=== PATIENT | female | born 1995 | race Caucasian/White ===

== ENCOUNTER 2018-03-16 12:09 | Emergency (ER) | payer OTHER ==
[2018-03-16 12:25] VITALS: BP 114/70; PULSE 69; RESP 18; TEMP 98.4
[2018-03-16] MEDS ORDERED: SODIUM CHLORIDE 0.9% 1,000 ML IV ONE (13:11)
--- NOTE | 2018-03-16 13:56 | ED ---
Abdominal Pain HPI - General Chief Complaint: Abdominal Pain Stated Complaint: 18wks preg, cramping Time Seen by Provider: 03/16/18 12:39 Source: patient, RN notes reviewed, old records reviewed Mode of arrival: ambulatory Limitations: no limitations - History of Present Illness Initial Comments: Patient is a 22 year old female, currently 18 weeks . She presents for abdominal pain, cramping and history of hematuria. She has been treated for cystitis by OBGYN with keflex, and has been taking keflex for the past 3 days. She states she continued to have intermittent hematuria. She adamently denies vaginal bleeding, or discharge. She denies back pain. - Related Data Home Medications Medication Instructions Recorded Confirmed Cephalexin [Keflex] 500 mg PO Q8H 03/16/18 03/16/18 Sertraline [Zoloft] 50 mg PO DAILY 03/16/18 03/16/18 Allergies Allergy/AdvReac Type Severity Reaction Status Date / Time No Known Allergies Allergy Verified 03/16/18 12:44 Review of Systems ROS Statement: Those systems with pertinent positive or pertinent negative responses have been documented in the HPI. ROS Other: All systems not noted in ROS Statement are negative. Past Medical History Past Medical History: No Reported History History of Any Multi-Drug Resistant Organisms: None Reported Additional Past Surgical History / Comment(s): heart murmur Past Psychological History: Anxiety Smoking Status: Former smoker Past Alcohol Use History: None Reported Past Drug Use History: None Reported General Exam - General Exam Comments Initial Comments: 22 year old female, no distress. Limitations: no limitations General appearance: alert, in no apparent distress Head exam: Present: atraumatic, normocephalic, normal inspection Eye exam: Present: normal appearance, PERRL, EOMI. Absent: scleral icterus, conjunctival injection, periorbital swelling ENT exam: Present: normal exam, mucous membranes moist Neck exam: Present: normal inspection. Absent: tenderness, meningismus, lymphadenopathy Respiratory exam: Present: normal lung sounds bilaterally. Absent: respiratory distress, wheezes, rales, rhonchi, stridor Cardiovascular Exam: Present: regular rate, normal rhythm, normal heart sounds. Absent: systolic murmur, diastolic murmur, rubs, gallop, clicks GI/Abdominal exam: Present: soft, normal bowel sounds. Absent: distended, tenderness, guarding, rebound, rigid External exam: Present: other (Patient refused pelvic exam) Extremities exam: Present: normal inspection, full ROM, normal capillary refill. Absent: tenderness, pedal edema, joint swelling, calf tenderness Back exam: Present: normal inspection Neurological exam: Present: alert, oriented X3, CN II-XII intact Psychiatric exam: Present: normal affect, normal mood Skin exam: Present: warm, dry, intact, normal color. Absent: rash Course Vital Signs 03/16/18 12:22 Temperature 98.4 F Pulse Rate 69 Respiratory 18 Rate Blood Pressure 114/70 O2 Sat by Pulse 100 Oximetry Medical Decision Making - Medical Decision Making Patient is a 22 year old female 18 weeks with intermittient hematuria, despite treatment for 3 days with keflex for cystitis. She has clear UA at this time, US shows viable IUP. Blood work was reviewed to be normal. She refused pelvic exam and is adament she has no vaginal bleeding. Disucssed likely resolving hemorrhagic cystitis. Discussed OB follow up, she has appt next week. - Lab Data Result diagrams: 03/16/18 13:45 03/16/18 13:45 Lab Results 03/16/18 03/16/18 03/16/18 Range/Units 13:45 13:45 13:45 WBC 7.6 (3.8-10.6) k/uL RBC 3.66 L (3.80-5.40) m/uL Hgb 11.1 L (11.4-16.0) gm/dL Hct 33.4 L (34.0-46.0) % MCV 91.1 (80.0-100.0) fL MCH 30.2 (25.0-35.0) pg MCHC 33.1 (31.0-37.0) g/dL RDW 12.8 (11.5-15.5) % Plt Count 138 L (150-450) k/uL Neutrophils % 79 % Lymphocytes % 13 % Monocytes % 5 % Eosinophils % 1 % Basophils % 0 % Neutrophils # 5.9 (1.3-7.7) k/uL Lymphocytes # 1.0 (1.0-4.8) k/uL Monocytes # 0.4 (0-1.0) k/uL Eosinophils # 0.1 (0-0.7) k/uL Basophils # 0.0 (0-0.2) k/uL PT (9.0-12.0) sec INR (<1.2) APTT (22.0-30.0) sec Sodium 136 L (137-145) mmol/L Potassium 3.8 (3.5-5.1) mmol/L Chloride 108 H (98-107) mmol/L Carbon Dioxide 24 (22-30) mmol/L Anion Gap 4 mmol/L BUN 8 (7-17) mg/dL Creatinine 0.50 L (0.52-1.04) mg/dL Est GFR (CKD-EPI)AfAm >90 (>60 ml/min/1.73 sqM) Est GFR (CKD-EPI)NonAf >90 (>60 ml/min/1.73 sqM) Glucose 107 H (74-99) mg/dL Calcium 8.6 (8.4-10.2) mg/dL Total Bilirubin 0.2 (0.2-1.3) mg/dL AST 12 L (14-36) U/L ALT 17 (9-52) U/L Alkaline Phosphatase 36 L (38-126) U/L Total Protein 5.6 L (6.3-8.2) g/dL Albumin 3.3 L (3.5-5.0) g/dL Urine Color Urine Appearance (Clear) Urine pH (5.0-8.0) Ur Specific Snyder (1.001-1.035) Urine Protein (Negative) Urine Glucose (UA) (Negative) Urine Ketones (Negative) Urine Blood (Negative) Urine Nitrite (Negative) Urine Bilirubin (Negative) Urine Urobilinogen (<2.0) mg/dL Ur Leukocyte Esterase (Negative) Urine HCG, Qual (Not Detectd) Blood Type A Positive Blood Type Recheck No 03/16/18 03/16/18 03/16/18 Range/Units 13:45 13:45 13:45 WBC (3.8-10.6) k/uL RBC (3.80-5.40) m/uL Hgb (11.4-16.0) gm/dL Hct (34.0-46.0) % MCV (80.0-100.0) fL MCH (25.0-35.0) pg MCHC (31.0-37.0) g/dL RDW (11.5-15.5) % Plt Count (150-450) k/uL Neutrophils % % Lymphocytes % % Monocytes % % Eosinophils % % Basophils % % Neutrophils # (1.3-7.7) k/uL Lymphocytes # (1.0-4.8) k/uL Monocytes # (0-1.0) k/uL Eosinophils # (0-0.7) k/uL Basophils # (0-0.2) k/uL PT 10.0 (9.0-12.0) sec INR 0.9 (<1.2) APTT 26.4 (22.0-30.0) sec Sodium (137-145) mmol/L Potassium (3.5-5.1) mmol/L Chloride (98-107) mmol/L Carbon Dioxide (22-30) mmol/L Anion Gap mmol/L BUN (7-17) mg/dL Creatinine (0.52-1.04) mg/dL Est GFR (CKD-EPI)AfAm (>60 ml/min/1.73 sqM) Est GFR (CKD-EPI)NonAf (>60 ml/min/1.73 sqM) Glucose (74-99) mg/dL Calcium (8.4-10.2) mg/dL Total Bilirubin (0.2-1.3) mg/dL AST (14-36) U/L ALT (9-52) U/L Alkaline Phosphatase (38-126) U/L Total Protein (6.3-8.2) g/dL Albumin (3.5-5.0) g/dL Urine Color Colorless Urine Appearance Clear (Clear) Urine pH 6.5 (5.0-8.0) Ur Specific Snyder 1.003 (1.001-1.035) Urine Protein Negative (Negative) Urine Glucose (UA) Negative (Negative) Urine Ketones Negative (Negative) Urine Blood Negative (Negative) Urine Nitrite Negative (Negative) Urine Bilirubin Negative (Negative) Urine Urobilinogen <2.0 (<2.0) mg/dL Ur Leukocyte Esterase Negative (Negative) Urine HCG, Qual Detected (Not Detectd) Blood Type Blood Type Recheck - Radiology Data Radiology results: report reviewed Viable IUP in breech position.Measuring 18 weeks and 1 day. Disposition Clinical Impression: 18 weeks gestation of , History of hematuria Disposition: HOME SELF-CARE Condition: Good Instructions (If sedation given, give patient instructions): (ED) Additional Instructions: Patient advised to have some close follow-up with your [facility]. Finish the antibiotics as previously prescribed. There is any further vaginal bleeding / bloody urine or discharge please return for reevaluation. Is patient prescribed a controlled substance at d/c from ED?: No Referrals: Dominick Mackey MD [Primary Care Provider] - 1-2 days Time of Disposition: 15:37
[2018-03-16 14:11] LABS: Basophils % (A) 0 %; Eosinophils # (A) 0.1 k/uL (0-0.7); Eosinophils % (A) 1 %; HCT 33.4 % (34.0-46.0); HGB 11.1 gm/dL (11.4-16.0); Lymphocytes % (A) 13 %; MCH 30.2 pg (25.0-35.0); MCHC 33.1 g/dL (31.0-37.0); MCV 91.1 fL (80.0-100.0); Mean Platelet Volume 8.1; Monocytes # (A) 0.4 k/uL (0-1.0); Monocytes % (A) 5 %; Neutrophils # (A) 5.9 k/uL (1.3-7.7); Neutrophils % (A) 79 %; Platelet Count 138 k/uL (150-450); RBC 3.66 m/uL (3.80-5.40); RDW 12.8 % (11.5-15.5); WBC 7.6 k/uL (3.8-10.6)
[2018-03-16 14:19] LABS: INR 0.9 (<1.2); Partial Thromboplastin Time 26.4 sec (22.0-30.0)
[2018-03-16 14:22] LABS: ALT 17 U/L (9-52); AST 12 U/L (14-36); Albumin 3.3 g/dL (3.5-5.0); Alkaline Phosphatase 36 U/L (38-126); Anion Gap 4 mmol/L; Blood Urea Nitrogen 8 mg/dL (7-17); Calcium 8.6 mg/dL (8.4-10.2); Carbon Dioxide 24 mmol/L (22-30); Chloride 108 mmol/L (98-107); Glucose 107 mg/dL (74-99); Potassium 3.8 mmol/L (3.5-5.1); Sodium 136 mmol/L (137-145); Total Bilirubin 0.2 mg/dL (0.2-1.3); Total Protein 5.6 g/dL (6.3-8.2)
[2018-03-16 14:37] LABS: Appearance,Urine Clear (Clear); Bilirubin,Urine Negative (Negative); Blood,Urine Negative (Negative); Color,Urine Colorless; Glucose,Urine (UA) Negative (Negative); Ketones,Urine Negative (Negative); Leukocyte Esterase,Urine Negative (Negative); Nitrite,Urine Negative (Negative); PH, Urine 6.5 (5.0-8.0); Protein,Urine Negative (Negative); Specific Gravity,Urine 1.003 (1.001-1.035); Urobilinogen,Urine <2.0 mg/dL (<2.0)
--- NOTE | 2018-03-16 15:18 | US ---
EXAMINATION TYPE: US OB >= 14 wk fetus DATE OF EXAM: 03/16/2018 COMPARISON: None CLINICAL HISTORY: painHematuria, cramping, 3, para 1, miscarriage 1 TECHNIQUE: Transabdominal (TA) GESTATIONAL AGE / DATING Physician Established: (18 weeks/0 days) EDC: 08/17/2018 Dates by LMP: Unknown Dates by First Scan: This is 1st scan Dates by Current Scan: (18 weeks/1 days) EDC: 08/16/2018 SURVEY IUP: Single PLACENTA: Fundal: 2 hypoechoic areas within placenta with largest measuring 2.0cm may represent plac ental [place] PREVIA: No Previa ELIF: 10.0 cm Normal CERVICAL LENGTH (transabdominal: norm > 3.0cm): 3.6 cm BIOMETRY PRESENTATION: Breech LIE: Longitudinal BPD: 4.0 cm 18 weeks / 1 days HC: 14.9 cm 18 weeks / 0 days AC: 12.8 cm 18 weeks / 2 days FL: 2.7 cm 18 weeks / 2 days ESTIMATED WEIGHT IN GRAMS: 231.3 grams ESTIMATED WEIGHT IN LBS/OZ: 0 lbs. 8 oz. WEIGHT PERCENTAGE BASED ON ESTABLISHED DATES: 62% HC/AC: 1.17 Normal FL/AC: 21.14 HEART RATE: 152 bpm RHYTHM: Normal Viable single IUP measuring 18 weeks 1 day with heart rate of 152bpm and an estimated delivery date o f 08/16/2018. IMPRESSION: Single viable intrauterine corresponding to ultrasound age 18 weeks 1 day with estimated da te of delivery 08/16/2018. Limited survey. Additional findings above.
== END 2018-03-16 16:07 | disposition home or self-care (01) ==
LOC: EC 12:09
DX: Z34.92 Encounter for supervision of normal pregnancy, unspecified, second trimester (principal); Z3A.18 18 weeks gestation of pregnancy; Z79.899 Other long term (current) drug therapy; Z87.891 Personal history of nicotine dependence; Z87.448 Personal history of other diseases of urinary system
CPT/HCPCS: 36415; 76805; 80053; 81003; 81025; 85025; 85610; 85730; 86900; 86901; 99284

== ENCOUNTER → 2018-05-26 | Outpatient (CLI) | payer OTHER ==
[2018-05-26 11:34] LABS: Glucose 3 Hour, Gest 67 mg/dL
== END | disposition home or self-care (01) ==
LOC: LABWHC1 07:31
PROVIDERS: ATTEND Obstetrics & Gynecology
DX: O99.810 Abnormal glucose complicating pregnancy (principal); Z3A.00 Weeks of gestation of pregnancy not specified
CPT/HCPCS: 36415; 82951; 82952

== ENCOUNTER 2018-08-17 21:10 | Outpatient (CLI) | payer OTHER ==
[2018-08-17 23:09] VITALS: BP 121/70; PULSE 87; RESP 16; TEMP 99.2
--- NOTE | 2018-08-19 08:13 | P.MSEPDOC ---
Presenting Problems - Arrival Data Date of Arrival on Unit: 08/17/18 Time of Arrival on Unit: 21:10 Mode of Transport: Wheelchair - Complaint OB-Reason for Admission/Chief Complaint: Possible Onset of Labor Comment: contractions since 1829 Medical History - Information : 3 Para: 1 Term: 1 : 0 Abortions: Spontaneous or Elective: 1 Number of Living Children: 1 - Gestational Age Gestational Age by PADMINI (wks/days): 40 Weeks and 0 Days Review of Systems - Review of Systems Constitutional: No problems Breast: No problems ENT: No problems Cardiovascular: No problems Respiratory: No problems Gastrointestinal: No problems Genitourinary: No problems Musculoskeletal: No problems Neurological: No problems Skin: No problems Vital Signs - Temperature Temperature: 99.2 F Temperature Source: Oral - Pulse Right Sitting Brachial Pulse Rate: 87 Pulse Assessment Method: Automatic Cuff - Respirations Respiratory Rate: 16 Oxygen Delivery Method: Room Air O2 Sat by Pulse Oximetry: 98 - Blood Pressure Right Arm Sitting Blood Pressure: 121/70 Blood Pressure Mean: 87 Blood Pressure Source: Automatic Cuff Medical Screen Scoring (Pre) - Cervical Exam Dilation: 1-3 cm = 1 Membranes: Intact - Uterine Contractions Frequency: > or = 36 weeks =2 Duration: > 40 seconds = 2 Intensity: N/A - Maternal Vital Signs Maternal Temperature: N/A Maternal Blood Pressure: N/A Signs of Preeclampsia: N/A Maternal Respirations: N/A - Assessment - Baby A Baseline FHR: 125 Heart Rate - NICHD Category: Category I (Normal) = 0 NST: Reactive - Total Score - Baby A Total Score - Baby A: 5 - Total Score - Baby B Total Score - Baby B: 5 - Total Score - Baby C Total Score - Baby C: 5 - Level of Risk - Baby A Level of Risk - Baby A: Low (0-5) - Level of Risk - Baby B Level of Risk - Baby B: Low (0-5) - Level of Risk - Baby C Level of Risk - Baby C: Low (0-5) Physician Notification (Pre) - Physician Notified Physician Notified Date: 08/17/18 Physician Notified Time: 22:00 Physician/Practitioner Notifed:: Jimbo Hannah Order Received: Yes Disposition - Disposition OB Disposition: Discharge to home, Written follow up instructions reviewed Discharge Date: 08/17/18 Discharge Time: 22:40 I agree with the RN Medical Screening Exam: Yes Risk & Benefit of care provided described in d/c instruction: Yes Diagnosis: FALSE LABOR AT OR AFTER 37 COMPLETED WEEKS OF GESTATION
== END 2018-08-17 22:40 | disposition home or self-care (01) ==
LOC: FBPOP 21:10
PROVIDERS: ATTEND Obstetrics & Gynecology
DX: O47.1 False labor at or after 37 completed weeks of gestation (principal); Z3A.40 40 weeks gestation of pregnancy
CPT/HCPCS: 59025; 99213

== ENCOUNTER 2018-08-19 04:55 | Inpatient (IN) | payer OTHER ==
[2018-08-19] MEDS ORDERED: CARBOPROST TROMETHAMINE 250 MCG/ML 1 ML AMP IM PRN (05:11)
[2018-08-19] MEDS ORDERED: TERBUTALINE 1 MG/ML VIAL SQ PRN (05:11)
[2018-08-19] MEDS ORDERED: METHYLERGONOVINE 0.2 MG/ML 1 ML AMP IM PRN (05:11)
[2018-08-19] MEDS ORDERED: LIDOCAINE 0.5% (PF) 5 MG/ML (50 ML SDV) SQ PRN (05:11)
[2018-08-19] MEDS ORDERED: OXYTOCIN 10 UNIT/ML 1 ML VIAL IM PRN (05:11)
[2018-08-19] MEDS ORDERED: OXYTOCIN 30 UNITS/500 ML NS 30 UNIT in SALINE 1 500ML.BAG IV SCH (05:15)
[2018-08-19] MEDS: LACTATED RINGERS 1,000 ML IV SCH ×3 (05:18→09:03)
[2018-08-19 05:28] LABS: Anisocytosis Slight; Basophils % (A) 0 %; Eosinophils # (A) 0.1 k/uL (0-0.7); Eosinophils % (A) 1 %; HCT 32.7 % (34.0-46.0); Hypochromasia Marked; Lymphocytes # (A) 1.4 k/uL (1.0-4.8); Lymphocytes % (A) 9 %; MCH 22.2 pg (25.0-35.0); MCHC 30.5 g/dL (31.0-37.0); Mean Platelet Volume 7.8; Microcytosis Moderate; Monocytes # (A) 0.8 k/uL (0-1.0); Monocytes % (A) 5 %; Neutrophils # (A) 13.6 k/uL (1.3-7.7); Neutrophils % (A) 84 %; Platelet Count 279 k/uL (150-450); Poikilocytosis Slight; RBC 4.49 m/uL (3.80-5.40); RDW 16.4 % (11.5-15.5); WBC 16.2 k/uL (3.8-10.6)
[2018-08-19] MEDS ORDERED: fentaNYL (PF) 50 MCG/ML 5 ML AMP ONE (05:43)
[2018-08-19] MEDS ORDERED: SODIUM CHLORIDE 0.9% 100 ML BAG ONE (05:43)
[2018-08-19] MEDS ORDERED: ROPIVACAINE 5MG/ML 20ML VIAL ONE (05:43)
[2018-08-19 06:14] VITALS: BMI 26.9
[2018-08-19] MEDS ORDERED: diphenhydrAMINE 50 MG/ML 1 ML VIAL IVP ONE (06:54)
[2018-08-19] MEDS ORDERED: ROPIVACAINE 100 MG, fentaNYL (PF) 200 MCG in SODIUM CHLORIDE 0.9% 76 ML EPIDURAL ONE (07:31)
--- NOTE | 2018-08-19 08:25 | P.HPOB ---
History of Present Illness H&P Date: 08/19/18 Chief Complaint: Induction of labor 23-year-old presents at 40 weeks and 2 days complaining of contractions. Her cervix is 3-4 centers dilated, 90% effaced, and -2 station. She is hannah every 3 minutes. heart tones 130 with moderate variability and reactive. Review of Systems All systems: negative Constitutional: Denies chills, Denies fever Eyes: denies blurred vision, denies pain Ears, nose, mouth and throat: Denies headache, Denies sore throat Cardiovascular: Denies chest pain, Denies shortness of breath Respiratory: Denies cough Gastrointestinal: Denies abdominal pain, Denies diarrhea, Denies nausea, Denies vomiting Genitourinary: Denies dysuria, Denies hematuria Musculoskeletal: Denies myalgias Integumentary: Denies pruritus, Denies rash Neurological: Denies numbness, Denies weakness Psychiatric: Denies anxiety, Denies depression Endocrine: Denies fatigue, Denies weight change Past Medical History Past Medical History: No Reported History Additional Past Medical History / Comment(s): heart murmur. Obstetric history: First was a trace . Second was a vaginal delivery 39 weeks, 7 pounds 3-1/2 ounces. The cervical . She's had care with me since first trimester. Blood type is A+, antibody is negative, HIV nonreactive, rubella immune, RPR nonreactive, hepatitis B negative, toxopl asmosis negative. EDC by 6 week ultrasound. She did see M because there is a maternal history of a congenital heart defect. Ultrasounds there were normal and she has had normal growth ultrasounds throughout her . Abnormal 1 hour, normal 3 hour [address]tt. History of Any Multi-Drug Resistant Organisms: None Reported Additional Past Surgical History / Comment(s): open hear at 1 years old to close hole that was congenital heart defect. Past Anesthesia/Blood Transfusion Reactions: No Reported Reaction Past Psychological History: Anxiety, Depression Smoking Status: Former smoker Past Alcohol Use History: None Reported Past Drug Use History: None Reported - Past Family History Mother Family Medical History: Unable to Obtain Additional Family Medical History / Comment(s): pt adopted Medications and Allergies Home Medications Medication Instructions Recorded Confirmed Type No Known Home Medications 08/19/18 08/19/18 History Allergies Allergy/AdvReac Type Severity Reaction Status Date / Time No Known Allergies Allergy Verified 08/19/18 05:11 Exam Osteopathic Statement: *. No significant issues noted on an osteopathic structural exam other than those noted in the History and Physical/Consult. Vital Signs Temp Pulse Resp BP Pulse Ox 08/19/18 05:30 98.0 F 83 16 119/71 97 Intake and Output 08/18/18 08/19/18 08/19/18 22:59 06:59 14:59 Other: # Voids 1 Weight 71.214 kg Heart: Regular rate and rhythm Lungs: Clear to auscultation bilaterally Abdomen: Soft, nontender Extremities: Negative Homans sign Results Result Diagrams: 08/19/18 05:20 Abnormal Lab Results - Last 24 Hours (Table) 08/19/18 Range/Units 05:20 WBC 16.2 H (3.8-10.6) k/uL Hgb 10.0 L (11.4-16.0) gm/dL Hct 32.7 L (34.0-46.0) % MCV 73.0 L (80.0-100.0) fL MCH 22.2 L (25.0-35.0) pg MCHC 30.5 L (31.0-37.0) g/dL RDW 16.4 H (11.5-15.5) % Neutrophils # 13.6 H (1.3-7.7) k/uL Assessment and Plan (1) Normal labor Current Visit: Yes Status: Acute Code(s): O80 - ENCOUNTER FOR FULL-TERM UNCOMPLICATED DELIVERY; Z37.9 - OUTCOME OF DELIVERY, UNSPECIFIED SNOMED Code(s): 17433242 Plan: 1. Admit to family place 2. Augment with Pitocin if necessary 3. Epidural for pain management 4. Anticipate normal vaginal delivery
[2018-08-19] MEDS ORDERED: diphenhydrAMINE 50 MG CAP PO PRN (12:59)
[2018-08-19] MEDS ORDERED: HYDROCORTISONE 2.5% RECTAL CREAM 30 GM TUBE RECTAL PRN (12:59)
[2018-08-19] MEDS ORDERED: WITCH HAZEL 1 EACH MED..PAD TOPICAL PRN (12:59)
[2018-08-19] MEDS ORDERED: diphenhydrAMINE 25 MG CAP PO PRN (12:59)
[2018-08-19] MEDS ORDERED: SIMETHICONE 80 MG CHEWABLE PO PRN (12:59)
[2018-08-19] MEDS ORDERED: ZOLPIDEM 5 MG TAB PO PRN (12:59)
[2018-08-19] MEDS ORDERED: BENZOCAINE/MENTHOL SPRAY 1 GM/SPRAY AEROSOL TOPICAL PRN (12:59)
[2018-08-19] MEDS ORDERED: diphenhydrAMINE 50 MG/ML 1 ML VIAL IVP PRN ×2 (12:59)
[2018-08-19] MEDS ORDERED: LANOLIN CREAM 5 GM TUBE TOPICAL PRN (12:59)
[2018-08-19] MEDS ORDERED: OXYTOCIN 20 UNITS/1000 ML NS 1,000 ML IV SCH (13:00)
[2018-08-19] MEDS: IBUPROFEN 600 MG TAB PO PRN ×2 (13:04→19:46)
[2018-08-20] MEDS: LACTATED RINGERS 1,000 ML IV SCH (00:29)
[2018-08-20] MEDS: SENNOSIDES-DOCUSATE SODIUM 1 EACH TAB PO SCH ×3 (00:29→20:03)
[2018-08-20] MEDS: IBUPROFEN 600 MG TAB PO PRN ×3 (04:34→22:57)
[2018-08-20] MEDS: ACETAMINOPHEN TAB 325 MG TAB PO PRN ×3 (07:55→20:05)
[2018-08-20 08:45] LABS: Anisocytosis Slight; Basophils % (A) 0 %; Eosinophils # (A) 0.1 k/uL (0-0.7); Eosinophils % (A) 0 %; HCT 24.5 % (34.0-46.0); HGB 7.4 gm/dL (11.4-16.0); Hypochromasia Marked; Lymphocytes # (A) 1.2 k/uL (1.0-4.8); Lymphocytes % (A) 8 %; MCH 22.4 pg (25.0-35.0); MCHC 30.3 g/dL (31.0-37.0); Mean Platelet Volume 8.2; Microcytosis Slight; Monocytes # (A) 0.8 k/uL (0-1.0); Monocytes % (A) 5 %; Neutrophils % (A) 86 %; Platelet Count 221 k/uL (150-450); Poikilocytosis Slight; RBC 3.31 m/uL (3.80-5.40); RDW 16.8 % (11.5-15.5); WBC 16.3 k/uL (3.8-10.6)
--- NOTE | 2018-08-20 08:56 | P.PROBDLV ---
Vaginal Delivery Note - . Vaginal Delivery Note: 23-year-old presents at 40 weeks and 2 days complaining of contractions. Her cervix is 3-4 centers dilated, 90% effaced, and -2 station. She is hannah every 3 minutes. heart tones 130 with moderate variability and reactive. Amniotomy was performed at 6:55 AM and meconium fluid seen. She did get an epidural and was comfortable. Her cervix was completely dilated at 1205. She pushed, and delivered a viable female over intact perineum under epidural anesthesia at 1238. Head delivered WILBERT, attempted to deliver the anterior shoulder,right, with gentle downward guidance but was not coming freely. Shoulder dystocia was diagnosed immediately. I reached in to deliver the left shoulder, which was the posterior shoulder, first. The anterior shoulder then freed from behind the pubic bone and the rest of the body was delivered. The entire time of the shoulder dystocia lasted approximately 20 seconds. Nose and mouth bulb suctioned, Cord was then clamped and cut and infant placed on mother's abdomen. Apgars 8, 9, weight 8 lbs. 14 oz. Placenta delivered spontaneously, intact with three-vessel cord at 1242. Vagina, cervix, and perineum were inspected. Second-degree left lateral laceration was repaired with 3-0 Vicryl. Her uterus was a little atonic and Pitocin was added to the IV. I drained her bladder and massaged her uterus until it would stop bleeding. EBL 400 mL. Mother and baby in stable condition.
--- NOTE | 2018-08-20 08:57 | P.PNOBGVD ---
Subjective - Subjective Principal diagnosis: Status post normal vaginal delivery day #1 Interval history: Patient seen and examined. Denies nausea, vomiting, chest pain, shortness of breath or calf pain. Patient reports: Reports appetite normal, Reports voiding normally, Reports pain well controlled, Reports ambulating normally Objective - Latest Vital Signs Latest vital signs: Vital Signs Temp Pulse Resp BP 08/20/18 08:00 97.9 F 74 16 103/64 08/20/18 00:00 98.2 F 86 15 111/63 08/19/18 20:00 98.1 F 97 15 114/67 08/19/18 15:59 97.9 F 93 16 126/69 08/19/18 14:55 97.9 F 93 16 126/69 08/19/18 14:25 93 16 115/67 08/19/18 13:55 98 16 118/65 08/19/18 13:40 90 16 117/65 08/19/18 13:25 97.9 F 93 16 128/73 08/19/18 13:10 95 15 135/74 08/19/18 12:55 118 H 16 132/73 - Exam Lungs: bilateral: normal Chest: Normal S1, Normal S2 Extremities: Present: normal Abdomen: Present: normal appearance, soft Uterus: Present: normal, firm - Labs Labs: Abnormal Lab Results - Last 24 Hours (Table) 08/20/18 Range/Units 06:22 WBC 16.3 H (3.8-10.6) k/uL RBC 3.31 L (3.80-5.40) m/uL Hgb 7.4 L D (11.4-16.0) gm/dL Hct 24.5 L (34.0-46.0) % MCV 74.0 L (80.0-100.0) fL MCH 22.4 L (25.0-35.0) pg MCHC 30.3 L (31.0-37.0) g/dL RDW 16.8 H (11.5-15.5) % Neutrophils # 14.0 H (1.3-7.7) k/uL Assessment and Plan (1) Normal labor Current Visit: Yes Status: Resolved Code(s): O80 - ENCOUNTER FOR FULL-TERM UNCOMPLICATED DELIVERY; Z37.9 - OUTCOME OF DELIVERY, UNSPECIFIED SNOMED Code(s): 26221460 (2) Normal vaginal delivery Current Visit: Yes Status: Acute Code(s): O80 - ENCOUNTER FOR FULL-TERM UNCOMPLICATED DELIVERY SNOMED Code(s): 05746427 Plan: 1. Continue care
[2018-08-21] MEDS: ACETAMINOPHEN TAB 325 MG TAB PO PRN (02:25)
[2018-08-21] MEDS: IBUPROFEN 600 MG TAB PO PRN (11:02)
[2018-08-21 11:23] VITALS: BP 93/48; PULSE 66; RESP 16; TEMP 98
--- NOTE | 2018-08-23 12:44 | P.DS ---
Providers Date of admission: 08/19/18 04:55 Expected date of discharge: 08/21/18 Attending physician: Anitha Choi Primary care physician: Stated None - Discharge Diagnosis(es) (1) Normal vaginal delivery Status: Acute Hospital Course: Patient presented for induction of labor. She underwent a normal vaginal delivery. Her course uncomplicated. She'll be discharged home day #1 in stable condition to follow-up with me in 6 weeks. Patient Condition at Discharge: Good Plan - Discharge Summary New Discharge Prescriptions: New Ibuprofen [Motrin] 600 mg PO Q6HR PRN #30 tab PRN Reason: Mild Pain Or Fever >= 100.5 Discharge Medication List Ibuprofen [Motrin] 600 mg PO Q6HR PRN #30 tab 08/21/18 [Rx] Follow up Appointment(s)/Referral(s): Anitha Choi DO [Doctor of Osteopathic Medicine] - 6 Weeks Discharge Disposition: HOME SELF-CARE
== END 2018-08-21 12:40 | disposition home or self-care (01) | DRG 806 ==
LOC: 4FBP 04:55
PROVIDERS: ADMIT Obstetrics & Gynecology; ATTEND Obstetrics & Gynecology
PROC: 10907ZC Drainage of Amniotic Fluid, Therapeutic from Products of Conception, Via Natural or Artificial Opening (ICD-10-PCS; principal; 2018-08-20)
PROC: 10E0XZZ Delivery of Products of Conception, External Approach (ICD-10-PCS; 2018-08-20)
PROC: 0KQM0ZZ Repair Perineum Muscle, Open Approach (ICD-10-PCS; 2018-08-20)
DX: O66.0 Obstructed labor due to shoulder dystocia (principal); O72.1 Other immediate postpartum hemorrhage; Z37.0 Single live birth; O99.344 Other mental disorders complicating childbirth; O70.1 Second degree perineal laceration during delivery; F32.9 Major depressive disorder, single episode, unspecified; F41.9 Anxiety disorder, unspecified; O77.0 Labor and delivery complicated by meconium in amniotic fluid; Z3A.40 40 weeks gestation of pregnancy; Z87.891 Personal history of nicotine dependence
CPT/HCPCS: 85025; 86850; 86900; 86901; 88307